=== PATIENT | female | born 1990 | race Two or more races ===

== ENCOUNTER 2023-12-23 17:45 | Inpatient (IN) | payer OTHER ==
[2023-12-23] MEDS: ELECTROLYTE-148 SOLN 1,000 ML IV SCH (18:15)
[2023-12-23] MEDS ORDERED: DINOPROSTONE 10 MG VAGINAL SUPPOSITORY VG ONE (18:45)
[2023-12-23 18:50] VITALS: BMI 31.0
[2023-12-23 22:48] LABS: BASO % 0.3 % (0-2.0); EOS % 0.2 % (0-4.5); HEMOGLOBIN 12.8 GM/dL (10.7-15.3); LYMPH % 23.1 % (8-40); MCH 31.6 pg (25.7-33.7); MCHC 33.8 g/dl (32.0-36.0); MEAN CELL VOLUME 93.5 fl (80-96); MEAN PLT VOLUME 8.4 fl (7.5-11.1); MONO % 5.2 % (3.8-10.2); NEUT % 71.2 % (42.8-82.8); PLATELET COUNT 310 10^3/uL (134-434); RBC 4.06 M/mm3 (3.60-5.2); RDW 13.7 % (11.6-15.6); WHITE BLOOD COUNT 13.2 K/mm3 (4.0-10.0)
[2023-12-23 22:50] LABS: CALCIUM 9.1 mg/dL (8.5-10.1); POTASSIUM 4.3 mmol/L (3.5-5.1)
[2023-12-23 22:51] LABS: BLOOD UREA NITROGEN 12.7 mg/dL (7-18)
[2023-12-23 22:54] LABS: CREATININE 0.6 mg/dL (0.55-1.3)
[2023-12-23 23:33] LABS: ACTIVATED PTT 28.8 SECONDS (25.2-36.5); INR 0.92 (0.83-1.09); PROTHROMBIN TIME (PATIENT) 10.6 SEC (9.7-13.0)
[2023-12-23 23:48] LABS: HIV INTERPRETATION NEGATIVE (NEGATIVE)
[2023-12-24] MEDS ORDERED: FENTANYL/BUPIVACAINE/NS/PF - PCEA - 50 ML DISP.SYRIN EP ONE (02:18)
[2023-12-24] MEDS ORDERED: NALOXONE HCL 0.4 MG/ML VIAL IVPUSH PRN (02:24)
[2023-12-24] MEDS ORDERED: BUPIVACAINE HCL/PF 0.25% (2.5MG/ML) 10 ML VIAL ONE (02:28)
[2023-12-24] MEDS ORDERED: FENTANYL CITRATE/PF 50 MCG/ML VIAL ONE (02:28)
[2023-12-24] MEDS: FENTANYL/BUPIVACAINE/NS/PF - PCEA - 50 ML DISP.SYRIN EP SCH (02:45)
[2023-12-24] MEDS ORDERED: AZITHROMYCIN IVPB 500 MG/250 ML BAG IVPB ONE (04:01)
[2023-12-24 04:51] LABS: CORD BASE EXCESS -2.6 mmol/L (0-2); CORD HCO3 22.2 mmHg (20-29); CORD pH 7.374 (7.14-7.44)
[2023-12-24 04:53] LABS: CORD HCO3 19.9 mmHg (20-29); CORD PCO2 37.6 mmHg (30-78); CORD pH 7.342 (7.14-7.44)
[2023-12-24] MEDS ORDERED: IBUPROFEN 600 MG TABLET (FP) PO PRN (05:16)
[2023-12-24] MEDS ORDERED: ONDANSETRON 4 MG/2 ML VIAL IVPUSH PRN (05:16)
[2023-12-24] MEDS ORDERED: ACETAMINOPHEN 325 MG TABLET (FP) PO PRN (05:16)
[2023-12-24] MEDS ORDERED: METHYLERGONOVINE MALEATE 0.2 MG/1 ML AMP IM PRN (05:27)
[2023-12-24] MEDS: OXYTOCIN 20 UNITS in 0.9% NS 20 UNIT/1,000 ML INFUS.BAG IV SCH (05:30)
[2023-12-24] MEDS: ACETAMINOPHEN 1000 MG/100 ML BAG IVPB PRN (09:44)
[2023-12-24] MEDS: FERROUS SO4 325 MG TABLET (FP) PO SCH (11:15)
[2023-12-24] MEDS: IBUPROFEN 800 MG/8 ML IJ IVPB PRN (11:15)
[2023-12-24] MEDS ORDERED: oxyCODONE HCL 5 MG TABLET PO PRN (17:27)
[2023-12-25] MEDS ORDERED: BISACODYL 10 MG SUPP.RECT RC PRN (05:27)
[2023-12-25] MEDS: IBUPROFEN 600 MG TABLET (FP) PO PRN (06:08)
[2023-12-25 08:02] LABS: BASO % 0.1 % (0-2.0); EOS % 0.4 % (0-4.5); HEMOGLOBIN 11.2 GM/dL (10.7-15.3); LYMPH % 22.9 % (8-40); MCH 31.7 pg (25.7-33.7); MEAN CELL VOLUME 93.2 fl (80-96); MEAN PLT VOLUME 8.6 fl (7.5-11.1); MONO % 6.7 % (3.8-10.2); NEUT % 69.9 % (42.8-82.8); PLATELET COUNT 202 10^3/uL (134-434); RBC 3.54 M/mm3 (3.60-5.2); RDW 13.9 % (11.6-15.6); WHITE BLOOD COUNT 12.2 K/mm3 (4.0-10.0)
[2023-12-25] MEDS: SIMETHICONE 80 MG TAB.CHEW (FP) PO PRN (08:06)
[2023-12-25] MEDS: PRENATAL VITAMINS W/ FOLIC ACID TABLET (FP) PO SCH (10:59)
[2023-12-25 11:03] LABS: POC NITRAZINE POS
[2023-12-25] MEDS: oxyCODONE HCL 5 MG TABLET PO PRN (18:58)
[2023-12-25] MEDS: SENNOSIDES/DOCUSATE COMBO (SENNA PLUS) TABLET (UD) PO PRN (18:58)
[2023-12-25] MEDS: ACETAMINOPHEN 325 MG TABLET (FP) PO PRN (22:37)
[2023-12-26] MEDS: CITRIC ACID/SODIUM CITRATE 30 ML UNIT-DOSE CUP PO ONE (07:18)
[2023-12-26] MEDS: MEPERIDINE HCL 25 MG/ML VIAL IVPUSH ONE (07:20)
[2023-12-26 09:18] VITALS: BP 117/76; PULSE 75; RESP 17; TEMP 98.7
== END 2023-12-26 14:15 | disposition home or self-care (01) | DRG 540 ==
LOC: JLDR 17:45 → J3W 12-24 08:00
PROVIDERS: ADMIT Obstetrics & Gynecology; ATTEND Obstetrics & Gynecology
PROC: 10D00Z1 Extraction of Products of Conception, Low, Open Approach (ICD-10-PCS; principal; 2023-12-24)
DX: O69.81X0 Labor and delivery complicated by cord around neck, without compression, not applicable or unspecified (principal); O77.9 Labor and delivery complicated by fetal stress, unspecified; Z3A.39 39 weeks gestation of pregnancy; Z37.0 Single live birth
CPT/HCPCS: 36415; 36600; 80048; 82803; 83986-QW; 85025; 85610; 85730; 86780; 86850; 86900; 86901; 87389; 88307-TC; J0131